=== PATIENT | female | born 1985 | race Caucasian/White ===

== ENCOUNTER → 2016-09-09 | Outpatient (CLI) | payer OTHER | LOC: KOH-I 11:38 | DX: M84.34 Stress fracture, hand and fingers (principal); M85.841 Other specified disorders of bone density and structure, right hand; S63.92XD Sprain of unspecified part of left wrist and hand, subsequent encounter; M79.89 Other specified soft tissue disorders | CPT/HCPCS: 73218 ==

== ENCOUNTER → 2021-02-06 | Outpatient (CLI) | payer BC | LOC: HEART 5 13:30 | DX: R00.2 Palpitations (principal) ==